=== PATIENT | female | born 1990 | race Two or more races ===

== ENCOUNTER → 2025-04-26 21:02 | Emergency (ER) | payer OTHER, SELFPAY | END | disposition admitted as inpatient to this hospital (09) | LOC: M ED 21:02 | DX: Z53.21 Procedure and treatment not carried out due to patient leaving prior to being seen by health care provider (principal) ==

== ENCOUNTER 2025-04-26 21:10 | Outpatient (CLI) ==
[2025-04-26] MEDS ORDERED: LR 1,000 ML IV ONE (22:10)
[2025-04-26] MEDS ORDERED: NIFEdipine 10 MG CAP PO ONE (22:20)
[2025-04-26] MEDS: NIFEdipine 10 MG CAP PO ONE (22:27)
== END 2025-04-26 22:37 | disposition short-term general hospital (02) ==
LOC: M LDO 21:10
PROVIDERS: ATTEND Advanced Practice Midwife
DX: O60.03 Preterm labor without delivery, third trimester (principal); O30.103 Triplet pregnancy, unspecified number of placenta and unspecified number of amniotic sacs, third trimester; O24.410 Gestational diabetes mellitus in pregnancy, diet controlled; O09.813 Supervision of pregnancy resulting from assisted reproductive technology, third trimester; O32.1XX3 Maternal care for breech presentation, fetus 3; Z3A.34 34 weeks gestation of pregnancy
CPT/HCPCS: 59025; 76815; G0463